=== PATIENT | male | born 1945 | race Caucasian/White ===

== ENCOUNTER 2019-01-03 05:52 | Emergency (ER) | payer OTHER ==
[~2019-01-03] VITALS: Ht 175.3 cm; Wt 114.8 kg
[~2019-01-03 05:52] MED LIST: ALLO100 PO; ASCO500; ASPI325; ATEN100 PO; ATEN50 PO; BECL25NI; CO Q-10 100 MG1 EACH PO; FLUNOI; FLUT110OIA INH; FURO20 PO; Flonase 0.05% N16 GM; GLUCHON; HYDACE5 PO; KETO10 PO; MECL12.5 PO; MECL25 PO; METF500 PO; Multiple Vitam1 EAC1 PO; NIAC500; OXYACE5T PO; PARO10 PO; PARO20; PRAV20 PO; PRED10 PO; PROM25 PO; PROM50S PR; RAPAFLO PO; RXHYDACE PO; RXPROM25S PR; TAMS.4ER PO; WARF5 PO
[2019-01-03] MEDS ORDERED: CYCL10 PO (09:03)
[2019-01-03] MEDS ORDERED: Norco 5-325 Ta1 EACH PO (09:03)
== END 2019-01-03 09:28 | disposition home or self-care (01) ==
LOC: ER 05:52
DX: M25.551 Pain in right hip (principal); Z88.5 Allergy status to narcotic agent; Z88.8 Allergy status to other drugs, medicaments and biological substances; Z79.899 Other long term (current) drug therapy; Z79.01 Long term (current) use of anticoagulants; Z79.84 Long term (current) use of oral hypoglycemic drugs; E11.9 Type 2 diabetes mellitus without complications; I10 Essential (primary) hypertension; F41.9 Anxiety disorder, unspecified; J45.909 Unspecified asthma, uncomplicated; I48.91 Unspecified atrial fibrillation
CPT/HCPCS: 36415; 72192; 73502; 96374; 96375; 99284-25; J2405; J3010

== ENCOUNTER 2019-02-13 23:50 | Inpatient (IN) | payer OTHER ==
[~2019-02-13] VITALS: Ht 175.3 cm; Wt 111.9 kg
[~2019-02-13 23:50] MED LIST changes: +CYCL10 PO; +Norco 5-325 Ta1 EACH PO
[2019-02-14 00:35] LABS: BASOPHILS ABSOLUTE AUTO 0.06 K/mm3 (0.00-0.23); BASOPHILS PERCENT AUTO 0 % (0-2); EOSINOPHILS ABSOLUTE AUTO 0.07 K/mm3 (0.00-0.68); EOSINOPHILS PERCENT AUTO 0 % (0-6); Hematocrit 47.1 % (37.0-53.0); Hemoglobin 15.7 g/dL (13.5-17.5); IMMATURE GRAN PERCENT AUTO 1 % (0-1); LYMPHOCYTES ABSOLUTE AUTO 1.23 K/mm3 (0.84-5.20); LYMPHOCYTES PERCENT AUTO 7 % (21-46); MONOCYTES ABSOLUTE AUTO 1.17 K/mm3 (0.16-1.47); MONOCYTES PERCENT AUTO 7 % (4-13); Mean Corpuscular HGB 32.4 pg (26.0-34.0); Mean Corpuscular HGB Conc 33.3 g/dL (31.5-36.5); Mean Corpuscular Volume 97 fL (80-100); Mean Platelet Volume 10.5 fL (9.1-12.4); NEUTROPHILS ABSOLUTE AUTO 14.35 K/mm3 (1.96-9.15); NEUTROPHILS PERCENT AUTO 85 % (41-73); Platelet Count 251 K/mm3 (150-400); RDW Coefficient Variation 13.9 % (11.7-14.2); Red Blood Cell Count 4.85 M/mm3 (4.30-5.90); White Blood Cell Count 16.98 K/mm3 (4.00-11.30)
[2019-02-14 00:59] LABS: Alanine Aminotransfer (ALT/SGP 18 U/L (12-78); Albumin, Blood 4.5 g/dL (3.4-5.0); Albumin/Globulin Ratio 1.3 (0.8-1.8); Alk Phos 93 U/L (50-136); Anion Gap 7 mmol/L (6-16); Aspartate Aminotrans (AST/SGOT 11 U/L (12-37); Bilirubin, Total 0.6 mg/dL (0.1-1.0); Blood Urea Nitrogen 23 mg/dL (8-24); CO2, Blood 20 mmol/L (21-32); Calcium, Blood 9.2 mg/dL (8.5-10.1); Chloride, Blood 113 mmol/L (98-108); Creatinine, Blood 0.85 mg/dL (0.60-1.20); Globulin, Blood 3.5 g/dL (2.2-4.0); Glomerular Filtration Rate >60 (60-); Glucose, Blood 253 mg/dL (70-99); Sodium, Blood 140 mmol/L (136-145); Troponin I <0.015 ng/mL (0.000-0.040)
[2019-02-14] MEDS ORDERED: ATOR10 PO (03:58)
[2019-02-14 04:40] LABS: International Normalized Ratio 2.12
--- NOTE | 2019-02-14 06:09 | NUR ---
PATIENT ARRIVED TO THE FLOOR AT 0515. HE TRANSFERRED SELF TO BED WITH SBA. ADMITTED FOR SMALL BOWEL OBSTRUCTION VS ILEUS. NGT PLACED IN ER HOOKED TO INTERMEDIENT SUCTION WITH 300CC OF YELLOW CLEAR TO BROWN FLUID WITH SOME SEDIMENT. DENIED ANY NAUSEA OR DISCOMFORT AT THIS TIME. ABDOMEN DISTENDED AND FIRM, NONTENDER, BOWEL TONES HYPOACTIVE. SECURED NGT TO NOSE WITH STAT TAPE, PINNED TO GOWN. TELEMETRY PLACED, SINUS TACHYCARDIA AT 114 PER LINEN GRADER. HISTORY OF AFIB NOTED, DENIED ANY CHEST PAIN OR SOB. ON 2 LITERS OF O2 DUE TO DROP IN SATS AFTER DILUADID WAS GIVEN. HAS HISTORY OF SLEEP APNEA. LUNG SOUNDS ARE CLEAR THROUGHOUT, SKIN PWD NO SKIN BREAKDOWN NOTED. IV FLUIDS INFUSING WIDE OPEN NS TO 20G LEFT HAND. NPO STATUS. SETTLED INTO ROOM, ADMISSION, HISTORY AND ASSESSMENT COMPLETED. CALL LIGHT AND INSTRUCTIONS GIVEN, VERBALIZED UNDERSTANDING. WILL CONTINUE TO MONITOR UNTIL DAY SHIFT ARRIVES.
--- NOTE | 2019-02-14 09:54 | NUR ---
PT NOT REQUIRING O2 DURING DAY. PT SATING AT 97 ON RA WHEN AWAKE. WILL CONTINUE TO MONITOR.
--- NOTE | 2019-02-14 09:57 | NUR ---
HR INCREASE TO 150S WITH EXERTION. PT HR INCREASED TO THE 150S PER MEGAN MAY. AT THIS TIME PT WAS WALKING TO BATHROOM. PT NOW BACK IN BED. HR RETURNED TO 107. WILL CONTINUE TO MONITOR.
--- NOTE | 2019-02-14 17:50 | NUR ---
Per admit trigger, I met with Mr. French and his . I offered information and education regarding ACP. Pt states "we have one at home." does not agree and took information. She asked good questions. Advised I would remain available to help complete forms. was asking pt questions from AD form as I left room. I will remain available.
--- NOTE | 2019-02-14 18:17 | NUR ---
SHIFT SUMMARY PT CONTINUES TO DENY PAIN. NG ON INTERMITTEN LOW SUCTION. 650 BROWN OUTPUT WITH PARTICLES DRAINED. NO BM THIS SHIFT. NO OTHER CHANGES IN ASSESSMENT AT THIS TIME. VSS. WILL CONTINUE TO MONITOR UNTIL TURNOVER IS COMPLETE.
--- NOTE | 2019-02-14 21:01 | NUR ---
DR SHI called about NPO status continued and IVF completed. Also thick blown NG secretions. BG was ordered Q 6 hours but sliding scale insulin ACHS. PT is NPO but requiring sling scale insulin. QID sliding scale times adjusted to Q [address] to decide if IV fluids will be continued. PT hyas only voided x 1 today per record and per PT report , no stools passing flatus. Await response.
--- NOTE | 2019-02-14 21:06 | NUR ---
RX IVF at 75 ml hour while NPO.
[2019-02-15 05:12] LABS: BASOPHILS ABSOLUTE AUTO 0.04 K/mm3 (0.00-0.23); BASOPHILS PERCENT AUTO 0 % (0-2); EOSINOPHILS PERCENT AUTO 2 % (0-6); Hematocrit 41.1 % (37.0-53.0); Hemoglobin 13.3 g/dL (13.5-17.5); IMMATURE GRAN ABSOLUTE AUTO 0.06 K/mm3 (0.00-0.10); IMMATURE GRAN PERCENT AUTO 1 % (0-1); LYMPHOCYTES ABSOLUTE AUTO 0.93 K/mm3 (0.84-5.20); LYMPHOCYTES PERCENT AUTO 8 % (21-46); MONOCYTES ABSOLUTE AUTO 0.94 K/mm3 (0.16-1.47); MONOCYTES PERCENT AUTO 8 % (4-13); Mean Corpuscular HGB 30.9 pg (26.0-34.0); Mean Corpuscular HGB Conc 32.4 g/dL (31.5-36.5); Mean Corpuscular Volume 96 fL (80-100); Mean Platelet Volume 10.3 fL (9.1-12.4); NEUTROPHILS ABSOLUTE AUTO 9.52 K/mm3 (1.96-9.15); NEUTROPHILS PERCENT AUTO 82 % (41-73); Platelet Count 183 K/mm3 (150-400); RDW Standard Deviation 49.1 fL (35.1-46.3); White Blood Cell Count 11.69 K/mm3 (4.00-11.30)
--- NOTE | 2019-02-15 05:46 | NUR ---
PT down to xray for KUB this AM and saline locked IV. No stools void x 2. Denies abd pain , has chronic knee pain. Irrigated NG to keep patent with total 140 ml water 440 brown output claimed. On tele monitor, pulse greater than 100 had lopressor 5 mg with helpful effect. few ice chips sips h2o taken
[2019-02-15 05:53] LABS: Alanine Aminotransfer (ALT/SGP 10 U/L (12-78); Albumin, Blood 3.3 g/dL (3.4-5.0); Albumin/Globulin Ratio 1.1 (0.8-1.8); Alk Phos 74 U/L (50-136); Anion Gap 7 mmol/L (6-16); Aspartate Aminotrans (AST/SGOT 4 U/L (12-37); Blood Urea Nitrogen 10 mg/dL (8-24); Bun/Creatinine Ratio 14.3 (12.0-20.0); CO2, Blood 24 mmol/L (21-32); Calcium, Blood 7.7 mg/dL (8.5-10.1); Chloride, Blood 111 mmol/L (98-108); Globulin, Blood 2.9 g/dL (2.2-4.0); Glomerular Filtration Rate >60 (60-); Glucose, Blood 152 mg/dL (70-99); Potassium, Blood 3.7 mmol/L (3.5-5.5); Sodium, Blood 142 mmol/L (136-145); Total Protein, Blood 6.2 g/dL (6.4-8.2)
--- NOTE | 2019-02-15 15:57 | NUR ---
SUMMARY PT IS A/O X4, PLEASANT AFFECT. HE IS IND, GAIT STEADY HOWEVER REQUIRES ASSIST WITH LINES. STATE NO NAUSEA, NO ABD PAIN SO FAR TODAY. STATE PASSING GAS INTERMITTANTLY. DR ISRAEL SEE HIM THIS AFTERNOON, PLACE ORDER TO CLAMP NG TUBE & CHECK RESIDUAL IN 3HRS. PT CONTINUES NPO X ICE CHIPS/SIPS WATER. HE HAS BEEN UP IN CHAIR MOST OF DAY. VSS, BIOX 97% RA
--- NOTE | 2019-02-15 18:16 | NUR ---
NG CLAMPED APPROX 3HRS/ORDER, RESIDUAL 75 ML KAREN WATERY FLUID w FLECKS GREEN/BROWN. NG TUBE REMOVED & CL ADA DIET PROVIDED/DR ISRAEL ORDER. BT+, PT STATE PASSING GAS INTERMITTANTLY, STATE NO NAUSEA. ENCOURAGED PO INTAKE CAUTIOUSLY.
[2019-02-16 04:51] LABS: BASOPHILS ABSOLUTE AUTO 0.03 K/mm3 (0.00-0.23); BASOPHILS PERCENT AUTO 0 % (0-2); EOSINOPHILS ABSOLUTE AUTO 0.12 K/mm3 (0.00-0.68); EOSINOPHILS PERCENT AUTO 1 % (0-6); Hematocrit 39.1 % (37.0-53.0); Hemoglobin 13.1 g/dL (13.5-17.5); IMMATURE GRAN ABSOLUTE AUTO 0.04 K/mm3 (0.00-0.10); IMMATURE GRAN PERCENT AUTO 0 % (0-1); LYMPHOCYTES ABSOLUTE AUTO 0.98 K/mm3 (0.84-5.20); LYMPHOCYTES PERCENT AUTO 10 % (21-46); MONOCYTES ABSOLUTE AUTO 0.83 K/mm3 (0.16-1.47); MONOCYTES PERCENT AUTO 9 % (4-13); Mean Corpuscular HGB 31.4 pg (26.0-34.0); Mean Corpuscular HGB Conc 33.5 g/dL (31.5-36.5); Mean Corpuscular Volume 94 fL (80-100); Mean Platelet Volume 10.1 fL (9.1-12.4); NEUTROPHILS ABSOLUTE AUTO 7.59 K/mm3 (1.96-9.15); NEUTROPHILS PERCENT AUTO 79 % (41-73); Platelet Count 164 K/mm3 (150-400); RDW Coefficient Variation 13.7 % (11.7-14.2); RDW Standard Deviation 46.6 fL (35.1-46.3); Red Blood Cell Count 4.17 M/mm3 (4.30-5.90); White Blood Cell Count 9.59 K/mm3 (4.00-11.30)
[2019-02-16 05:06] LABS: International Normalized Ratio 1.93; Prothrombin Time Results 19.3 Sec (9.7-11.5)
[2019-02-16 05:12] LABS: Anion Gap 8 mmol/L (6-16); Blood Urea Nitrogen 8 mg/dL (8-24); Bun/Creatinine Ratio 11.4 (12.0-20.0); CO2, Blood 25 mmol/L (21-32); Calcium, Blood 8.2 mg/dL (8.5-10.1); Chloride, Blood 108 mmol/L (98-108); Glomerular Filtration Rate >60 (60-); Glucose, Blood 150 mg/dL (70-99); Potassium, Blood 3.5 mmol/L (3.5-5.5); Sodium, Blood 141 mmol/L (136-145)
--- NOTE | 2019-02-16 06:49 | NUR ---
SHIFT SUMMARY PT IS A 73 Y/O MALE, ADMITTED FOR AN ILEUS VS SBO. HIS NG TUBE WAS REMOVED DURING DAY SHIFT YESTERDAY, AND HE HAS BEEN ON A CLEAR LIQUID DIET SINCE, WHICH HE HAS TOLERATED WELL WITH NO REPORTED NAUSEA OR ABD PAIN. PER TELE, PT REMAINS IN AFIB, IN THE 90S, BUT WILL SPIKE UP TO THE 110S TO 120S WITH ANY EXERTION. ALL OTHER VITALS STABLE. NO OTHER ACUTE CHANGES IN PT CONDITION NOTED. WILL CONTINUE TO MONITOR AND TREAT PER EMAR UNTIL HAND OFF TO DAY SHIFT RN.
--- NOTE | 2019-02-16 19:42 | NUR ---
SUMMARY PT STATE NO ABD PAIN, NO NAUSEA. STATES PASSING GAS INTERMITTANTLY HOWEVER NO BM TODAY. BT+ HOWEVER HYPO. DR ISRAEL STATE TO CONTINUE CL DIET FOR NOW. PT HAS BEEN TOLERATING CAUTIOUSLY. HE HAS BEEN UP IN CHAIR FOR BRIEF PERIODS TODAY, STATE WEAKNESS, HAS AMBULATED W FWW IN ROOM HOWEVER ONLY SHORT DISTANCE, R/T R HIP, R KNEE PAIN. HAVE GIVEN IV DILAUDID & NORCO TODAY FOR RELIEF/CONTROL. HR AFIB T/O DAY, TELE MX REPORT AVERAGE APPROX 100 BPM, DR YOLI JARQUIN TODAY. AMBULATION ENCOURAGED.
[2019-02-17 04:57] LABS: BASOPHILS ABSOLUTE AUTO 0.02 K/mm3 (0.00-0.23); BASOPHILS PERCENT AUTO 0 % (0-2); EOSINOPHILS ABSOLUTE AUTO 0.03 K/mm3 (0.00-0.68); EOSINOPHILS PERCENT AUTO 0 % (0-6); Hematocrit 38.1 % (37.0-53.0); Hemoglobin 13.2 g/dL (13.5-17.5); IMMATURE GRAN ABSOLUTE AUTO 0.04 K/mm3 (0.00-0.10); IMMATURE GRAN PERCENT AUTO 1 % (0-1); LYMPHOCYTES ABSOLUTE AUTO 0.73 K/mm3 (0.84-5.20); LYMPHOCYTES PERCENT AUTO 9 % (21-46); MONOCYTES PERCENT AUTO 13 % (4-13); Mean Corpuscular HGB 31.9 pg (26.0-34.0); Mean Corpuscular HGB Conc 34.6 g/dL (31.5-36.5); Mean Corpuscular Volume 92 fL (80-100); Mean Platelet Volume 10.2 fL (9.1-12.4); NEUTROPHILS ABSOLUTE AUTO 5.93 K/mm3 (1.96-9.15); NEUTROPHILS PERCENT AUTO 77 % (41-73); Platelet Count 162 K/mm3 (150-400); RDW Coefficient Variation 13.6 % (11.7-14.2); RDW Standard Deviation 46.2 fL (35.1-46.3); Red Blood Cell Count 4.14 M/mm3 (4.30-5.90); White Blood Cell Count 7.75 K/mm3 (4.00-11.30)
[2019-02-17 05:11] LABS: International Normalized Ratio 1.65; Prothrombin Time Results 16.7 Sec (9.7-11.5)
[2019-02-17 05:15] LABS: Alanine Aminotransfer (ALT/SGP 104 U/L (12-78); Albumin, Blood 3.3 g/dL (3.4-5.0); Albumin/Globulin Ratio 1.1 (0.8-1.8); Alk Phos 159 U/L (50-136); Anion Gap 8 mmol/L (6-16); Aspartate Aminotrans (AST/SGOT 62 U/L (12-37); Blood Urea Nitrogen 7 mg/dL (8-24); Bun/Creatinine Ratio 10.7 (12.0-20.0); CO2, Blood 25 mmol/L (21-32); Chloride, Blood 105 mmol/L (98-108); Creatinine, Blood 0.65 mg/dL (0.60-1.20); Glomerular Filtration Rate >60 (60-); Glucose, Blood 176 mg/dL (70-99); Potassium, Blood 3.2 mmol/L (3.5-5.5); Sodium, Blood 138 mmol/L (136-145); Total Protein, Blood 6.3 g/dL (6.4-8.2)
--- NOTE | 2019-02-17 06:46 | NUR ---
SHIFT SUMMARY PT IS A 73 Y/O MALE, ADMITTED FOR AN ILEUS VS SBO. HE IS A&O X 4, AND A SBA/INDEPENDENT IN THE ROOM. PT DENIED ANY ABD PAIN OR NAUSEA, AND HAS TOLERATED HIS CLEAR LIQUID DIET WELL. HE WAS MEDICATED ONCE WITH PRN HYDROCODONE FOR CHRONIC HIP PAIN. VITALS WERE STABLE. PT SLEPT OFF AND ON THROUGH THE NIGHT. NO OTHER ACUTE CHANGES IN PT CONDITION NOTED. WILL CONTINUE TO MONITOR AND TREAT PER EMAR UNTIL HAND OFF TO DAY SHIFT.
[2019-02-17 15:35] LABS: Adenovirus F 40/41 Not Detected (NOT DETECT); Astrovirus Not Detected (NOT DETECT); Campylobacter Sp Not Detected (NOT DETECT); Cryptosporidium Not Detected (NOT DETECT); Cyclospora Cayetanensis Not Detected (NOT DETECT); E. Coli O157 Not Detected (NOT DETECT); Entamoeba Histolytica Not Detected (NOT DETECT); Enteroaggregative E. coli-EAEC Not Detected (NOT DETECT); Enteropathogenic E. coli-EPEC Not Detected (NOT DETECT); Enterotoxigenic E. coli-ETEC Not Detected (NOT DETECT); Giardia Lamblia Not Detected (NOT DETECT); Norovirus GI/GII Not Detected (NOT DETECT); Plesiomonas Shigelloides Not Detected (NOT DETECT); Rotavirus A Not Detected (NOT DETECT); Salmonella Sp Not Detected (NOT DETECT); Sapovirus Not Detected (NOT DETECT); Shiga Toxin-prod E. coli-STEC Not Detected (NOT DETECT); Shigella/Enteroin E. coli-EIEC Not Detected (NOT DETECT); Vibrio Cholerae Not Detected (NOT DETECT); Vibrio Sp Not Detected (NOT DETECT); Yersinia Enterocolitica Not Detected (NOT DETECT)
--- NOTE | 2019-02-17 18:24 | NUR ---
SHIFT SUMMARY PT AXO, PLEASANT AND COOPERATIVE WITH CARE. TELE DC'D THIS SHIFT. IV PATENT AND SALINE LOCKED. PT SBA TO BATHROOM, RT R. HIP PAIN AND LINES AND CORDS. PT HAD BM X3 THIS SHIFT, LIQUID WITH CHUNKS. SAMPLE SENT TO LAB, SEE LABS. PT TOLERATING FULL LIQUID DIET. PT MEDICATED FOR PAIN PER EMAR, STATES THAT HIS HIP PAIN IS A 10/10 WITH MOVEMENT BUT PAIN IS TOLERABLE AT REST. BED IN LOW POSITION, CALL LIGHT WITHIN REACH. CONT PULSE OX ON 93% THROUGHOUT THE DAY. PT DENIES SOB AND NV
[2019-02-18 04:53] LABS: International Normalized Ratio 1.34; Prothrombin Time Results 13.8 Sec (9.7-11.5)
[2019-02-18 04:56] LABS: Anion Gap 7 mmol/L (6-16); Blood Urea Nitrogen 5 mg/dL (8-24); Bun/Creatinine Ratio 7.1 (12.0-20.0); CO2, Blood 26 mmol/L (21-32); Calcium, Blood 8.3 mg/dL (8.5-10.1); Chloride, Blood 103 mmol/L (98-108); Glomerular Filtration Rate >60 (60-); Glucose, Blood 163 mg/dL (70-99); Potassium, Blood 3.2 mmol/L (3.5-5.5); Sodium, Blood 136 mmol/L (136-145)
[2019-02-18] MEDS ORDERED: WARF7.5 PO (10:54)
[2019-02-18] MEDS ORDERED: ACET500 PO (10:54)
[2019-02-18] MEDS ORDERED: HYDR1TAB94 PO (10:55)
[2019-02-18] MEDS ORDERED: POTCHL20ER PO (10:55)
[2019-02-18] MEDS ORDERED: SENN187 PO (10:56)
--- NOTE | 2019-02-18 12:44 | NUR ---
DISCHARGE DISCHARGE INSTRUCTIONS, MEDICATION LIST AND FOLLOW UP APPOINTMENTS REVIEWED WITH PT AND HIS SPOUSE. QUESTIONS/CONCERNS ANSWERED. PT AND SPOUSE VERBALLY INDICATED UNDERSTANDING OF ALL INSTRUCTIONS RECEIVED. ESCORTED OUT VIA W/C BY MOLLY
== END 2019-02-18 12:14 | disposition home or self-care (01) | DRG 390 ==
LOC: ER 23:50 → MEDS 02-14 04:53 → ENPENDDIS 02-18 10:09 → MEDS 02-18 12:14
PROVIDERS: Family Medicine; Internal Medicine; Physician Assistant; ADMIT Internal Medicine
DX: K56.7 Ileus, unspecified (principal); M16.11 Unilateral primary osteoarthritis, right hip; G89.4 Chronic pain syndrome; E11.9 Type 2 diabetes mellitus without complications; Z79.4 Long term (current) use of insulin; I10 Essential (primary) hypertension; I48.2 Chronic atrial fibrillation; K21.9 Gastro-esophageal reflux disease without esophagitis; E87.6 Hypokalemia; M10.9 Gout, unspecified; Z85.841 Personal history of malignant neoplasm of brain; G47.30 Sleep apnea, unspecified
CPT/HCPCS: 0097U; 36415; 71045; 74018; 74176; 80048; 80053; 82947; 83690; 84484; 85025; 85610; 93005; 93010; 94762; 96361; 96374; 96375; 96376; 99285-25; A9270-GY; J1170; J1650; J1815; J2405; J3480; J7030

== ENCOUNTER → 2019-09-06 | Outpatient (CLI) | payer OTHER ==
[~2019-09-06] MED LIST changes: +ACET500 PO; +ATOR10 PO; +HYDR1TAB94 PO; +POTCHL20ER PO; +SENN187 PO; +WARF7.5 PO
[2019-09-06 11:49] LABS: Source, Urine Clean Catch
[2019-09-06 12:09] LABS: Amorphous Light (0-Heavy); Bacteria Rare /hpf; Mucus Heavy (0-Heavy); Red Blood Cells, Urine 0-2 /hpf (0-2); Squamous Epithelial Cells Rare /hpf (Few)
== END | disposition home or self-care (01) ==
LOC: LAB EV 11:47 → LAB SHORT 11:47
PROVIDERS: Physician Assistant
DX: R35.0 Frequency of micturition (principal)
CPT/HCPCS: 81015; 87086

== ENCOUNTER 2020-04-24 11:37 | Day surgery (SDC) | payer OTHER ==
[~2020-04-24] VITALS: Ht 175.3 cm; Wt 108.3 kg
[~2020-04-24 11:37] MED LIST changes: +COLE625 PO; +FLOVENT HFA12 GM INH; +FLUT.05NI; +MULTIVITAMINS1 EAC3; +PARO20 PO; +SITA25T2 PO
--- NOTE | 2020-04-24 13:22 | NUR ---
04/24/20 1322 Carisa Lee DELAYED ENTRY 1ST IV ATTEMPT BY HS IN RIGHT HAND UNSUCCESSFUL 2ND IV ATTEMPT BY NSC IN RIGHT FOREARM NO FLASHBACK 3RD IV ATTEMPT BY RXS IN LEFT WRIST NO FLASHBACK 4TH ATTEMPT BY DR FOSTER IN RIGHT WRIST SUCCESSFUL
== END 2020-04-24 13:52 | disposition home or self-care (01) ==
LOC: ORSCSDS 11:37
PROVIDERS: Internal Medicine Gastroenterology
PROC: 0DBE8ZX Excision of Large Intestine, Via Natural or Artificial Opening Endoscopic, Diagnostic (ICD-10-PCS; principal; 2020-04-24 13:00)
DX: R19.7 Diarrhea, unspecified (principal); Z86.010 Personal history of colon polyps; K57.30 Diverticulosis of large intestine without perforation or abscess without bleeding; K64.8 Other hemorrhoids; G47.33 Obstructive sleep apnea (adult) (pediatric); E11.9 Type 2 diabetes mellitus without complications; G47.30 Sleep apnea, unspecified; I48.91 Unspecified atrial fibrillation; E66.9 Obesity, unspecified; Z68.36 Body mass index [BMI] 36.0-36.9, adult; Z79.82 Long term (current) use of aspirin; Z79.84 Long term (current) use of oral hypoglycemic drugs; Z79.01 Long term (current) use of anticoagulants; Z79.899 Other long term (current) drug therapy
CPT/HCPCS: 88305; J2704; J7120

== ENCOUNTER 2020-12-09 21:14 | Emergency (ER) | payer OTHER ==
[~2020-12-09] VITALS: Ht 177.8 cm; Wt 108.9 kg
[2020-12-09] MEDS ORDERED: Voltaren100 GM TOP (23:40)
== END 2020-12-10 00:09 | disposition home or self-care (01) ==
LOC: ER 21:14
DX: M25.521 Pain in right elbow (principal); E11.9 Type 2 diabetes mellitus without complications; I10 Essential (primary) hypertension; K21.9 Gastro-esophageal reflux disease without esophagitis; J45.909 Unspecified asthma, uncomplicated; Z88.5 Allergy status to narcotic agent; Z88.8 Allergy status to other drugs, medicaments and biological substances; Z79.01 Long term (current) use of anticoagulants; Z79.899 Other long term (current) drug therapy; Z79.84 Long term (current) use of oral hypoglycemic drugs
CPT/HCPCS: 73080; 99283-25; A9270

== ENCOUNTER → 2021-06-30 | Outpatient (CLI) | payer OTHER ==
[~2021-06-30] MED LIST changes: +Voltaren100 GM TOP
[2021-07-01 09:57] LABS: Stool Occult Bld Immuno 1 Negative (NEGATIVE)
== END | disposition home or self-care (01) ==
LOC: LAB SHORT 14:50 → LAB 14:50
PROVIDERS: Family Medicine
DX: Z12.11 Encounter for screening for malignant neoplasm of colon (principal)
CPT/HCPCS: G0328

== ENCOUNTER → 2021-10-09 | Outpatient (CLI) | payer OTHER ==
[2021-10-11 09:16] LABS: Stool Occult Bld Immuno 1 Negative (NEGATIVE)
== END | disposition home or self-care (01) ==
LOC: LAB 13:45 → LAB SHORT 13:45
PROVIDERS: Internal Medicine
DX: D53.9 Nutritional anemia, unspecified (principal)
CPT/HCPCS: 82274

== ENCOUNTER → 2022-12-23 | Outpatient (CLI) | payer OTHER ==
[2022-12-23 16:21] LABS: Microalb/Creat Ratio UR, Rand 12.52 mg/g (0.000-30.000); Microalbumin, Random Urine 15.9 mg/L (0.000-20.000)
== END | disposition home or self-care (01) ==
LOC: LAB SHORT 14:10 → LAB 14:10
PROVIDERS: Internal Medicine Endocrinology, Diabetes & Metabolism
DX: E11.65 Type 2 diabetes mellitus with hyperglycemia (principal)
CPT/HCPCS: 82043; 82570

== ENCOUNTER 2023-06-04 19:09 | Inpatient (IN) | payer OTHER ==
[~2023-06-04] VITALS: Ht 172.7 cm; Wt 111.5 kg
[2023-06-05 02:51] LABS: BASOPHILS ABSOLUTE AUTO 0.03 K/mm3 (0.00-0.23); BASOPHILS PERCENT AUTO 0 % (0-2); EOSINOPHILS ABSOLUTE AUTO 0.01 K/mm3 (0.00-0.68); EOSINOPHILS PERCENT AUTO 0 % (0-6); Hematocrit 40.9 % (37.0-53.0); IMMATURE GRAN ABSOLUTE AUTO 0.06 K/mm3 (0.00-0.10); IMMATURE GRAN PERCENT AUTO 0 % (0-1); LYMPHOCYTES ABSOLUTE AUTO 1.04 K/mm3 (0.84-5.20); LYMPHOCYTES PERCENT AUTO 8 % (21-46); MONOCYTES ABSOLUTE AUTO 1.14 K/mm3 (0.16-1.47); MONOCYTES PERCENT AUTO 9 % (4-13); Mean Corpuscular HGB 32.8 pg (26.0-34.0); Mean Corpuscular HGB Conc 34.2 g/dL (31.5-36.5); Mean Corpuscular Volume 96 fL (80-100); Mean Platelet Volume 9.7 fL (9.1-12.4); NEUTROPHILS ABSOLUTE AUTO 11.16 K/mm3 (1.96-9.15); NEUTROPHILS PERCENT AUTO 83 % (41-73); Platelet Count 257 K/mm3 (150-400); RDW Coefficient Variation 14.6 % (11.7-14.2); RDW Standard Deviation 51.4 fL (35.1-46.3); Red Blood Cell Count 4.27 M/mm3 (4.30-5.90); White Blood Cell Count 13.44 K/mm3 (4.00-11.30)
[2023-06-05 03:25] LABS: International Normalized Ratio 2.89; Prothrombin Time Results 28.6 Sec (9.7-11.5)
[2023-06-05 03:38] LABS: Albumin, Blood 3.4 g/dL (3.4-5.0); Bilirubin, Total 0.9 mg/dL (0.1-1.0); Bun/Creatinine Ratio 18.4 (12.0-20.0); Calcium, Blood 8.3 mg/dL (8.5-10.1); Creatinine, Blood 0.71 mg/dL (0.60-1.20); Globulin, Blood 3.3 g/dL (2.2-4.0); Potassium, Blood 3.8 mmol/L (3.5-5.5); Total Protein, Blood 6.7 g/dL (6.4-8.2)
--- NOTE | 2023-06-05 03:40 | NUR ---
ADMIT NOTE; PT ARRIVES FROM ED VIA ED GURNEY. THE PT IS AXO X4 AND ABLE TO SELF TRANSFER FROM THE ED GURNEY TO THE HOSPITAL BED. THE PT HAS A NG TUBE IN PLACE, IT IS PATENT. WELL THE PT HAS LR RUNNING AT 75MLS/HR. THE PT DENIES ANY SOB, CHEST PAIN/PRESSURE N/V OR ABDOMINAL DISCOMFORT PRESENTLY. NG TUBE ATTACHED TO SUCTION RUNNING AT 30-40 INTERMITTENLY. GREEN BILE LIKE SUBSTANCE DRAINING. THE PT DENIES HAVING ANY OTHER PAIN, CHEST PAIN/PRESSURE OR N/V. CURRENTLY THE PT IS RESTING IN BED WITH THE BED IN THE LOWEST POSITION AND THE CALL LIGHT AT BEDSIDE. FIRE EDUCATION PROVIDED, THE PT DENIES HAVING ANY POSSIBLE IGNITION SOURCES IN POSSESSION AT THIS TIME.
[2023-06-05 03:44] VITALS: BP 125/91
--- NOTE | 2023-06-05 05:15 | NUR ---
SHIFT SUMMARY; NO ACUTE CHANGES SINCE ADMIT. THE PT IS AXO X4 AND INDEPENDENT AT BASELINE. 1 ASSIST R/T HAVING A NG TUBE. THE PT HAS BEEN SLEEPING IN BED SINCE ADMIT. THE PTS NG TUBE REMAINS PATENT DRAINING GREEN BILE LIKE SUBSTANCE. THE PT DENIES ANY SOB, CHEST PAIN/PRESSURE, PAIN OR N/V. CURRENTLY THE PT IS SLEEPING IN BED WITH THE BED IN THE LOWEST POSITION AND THE CALL LIGHT AT BEDSIDE. FIRE SAFETY MAINTAINED SINCE ADMIT.
[2023-06-05 07:34] VITALS: BP 130/77
--- NOTE | 2023-06-05 16:04 | NUR ---
SHIFT SUMMARY PT AWAKE DURING SHIFT REPORT. PLEASANT AND CO-OP. ADMITTED FOR SBO; NGT TO LIS WITH DECREASED OUTPUT FROM PLACEMENT IN ER. DR HAWKINS IN TO SEE PT EARLY AND DISCUSSED PLAN OF CARE WELL WAITING FOR INPUT FROM SURGEON. DR REAGAN LATER IN TO SEE PT, IRRIGATING NGT. PT REPORTING FEELING BETTER AFTER NGT PLACED IN ER, REMOVING PRESSURE IN ABD. NO C/O PAIN OR NAUSEA. USING URINAL AT BS NEEDED. IN TO VISIT EARLY AND RETURNING AGAIN LATER THIS AFTERNOON. PT RESTING QUIETLY WATCHING TV AND NAPPING OFF AND ON. DENIED FURTHER NEEDS. CALL LT IN REACH.
[2023-06-05 16:11] VITALS: BP 110/97
[2023-06-05 20:15] VITALS: BP 133/94
[2023-06-06 05:05] VITALS: BP 131/86
[2023-06-06 05:06] LABS: International Normalized Ratio 2.84; Prothrombin Time Results 28.1 Sec (9.7-11.5)
--- NOTE | 2023-06-06 05:47 | NUR ---
SHIFT SUMMARY PT IS A&OX4, PLEASANT AND COOPERATIVE WITH ALL CARES. NORMOTENSIVE, HR 70-80'S, AFEBRILE, 02 SATS >90% ON RA. DENIES PAIN. BG WNL. NGT TO LIS, SMALL AMOUNTS OF GREENISH/BROWN OUTPUT. VOIDING INDEPENDENTLY IN URINAL AT BEDSIDE. ADEQUATE AMOUNTS OF DARK YELLOW URINE, NO BM THIS SHIFT BUT STATES HE IS PASSING FLATUS. ABIGAIL REMAINS NPO, SIPS WITH MEDICATIONS. DENIES ANY N/V. BED IN LOWEST POSITION, CALL LIGHT WITHIN REACH. FIRE SAFETY CHECKS COMPLETED
[2023-06-06 07:14] VITALS: BP 135/82
[2023-06-06 09:57] LABS: BASOPHILS ABSOLUTE AUTO 0.04 K/mm3 (0.00-0.23); BASOPHILS PERCENT AUTO 0 % (0-2); EOSINOPHILS ABSOLUTE AUTO 0.09 K/mm3 (0.00-0.68); EOSINOPHILS PERCENT AUTO 1 % (0-6); Hematocrit 38.8 % (37.0-53.0); Hemoglobin 12.8 g/dL (13.5-17.5); IMMATURE GRAN ABSOLUTE AUTO 0.04 K/mm3 (0.00-0.10); IMMATURE GRAN PERCENT AUTO 0 % (0-1); LYMPHOCYTES ABSOLUTE AUTO 1.22 K/mm3 (0.84-5.20); LYMPHOCYTES PERCENT AUTO 13 % (21-46); MONOCYTES ABSOLUTE AUTO 0.76 K/mm3 (0.16-1.47); MONOCYTES PERCENT AUTO 8 % (4-13); Mean Corpuscular HGB 31.9 pg (26.0-34.0); Mean Corpuscular Volume 97 fL (80-100); Mean Platelet Volume 10.1 fL (9.1-12.4); NEUTROPHILS ABSOLUTE AUTO 7.45 K/mm3 (1.96-9.15); NEUTROPHILS PERCENT AUTO 78 % (41-73); Platelet Count 219 K/mm3 (150-400); RDW Coefficient Variation 14.5 % (11.7-14.2); RDW Standard Deviation 51.9 fL (35.1-46.3); Red Blood Cell Count 4.01 M/mm3 (4.30-5.90)
[2023-06-06 10:06] LABS: Bun/Creatinine Ratio 17.2 (12.0-20.0); Calcium, Blood 7.9 mg/dL (8.5-10.1); Creatinine, Blood 0.7 mg/dL (0.60-1.20); Potassium, Blood 3.7 mmol/L (3.5-5.5)
--- NOTE | 2023-06-06 14:33 | NUR ---
SHIFT SUMMARY PT RESTING QUIETLY AT START OF SHIFT, NGT TO LIS; BROWN FLUID WITH PARTICLES IN TUBING. STILL NO BM. NO C/O NAUSEA OR PAIN. DR HAWKINS IN TO SEE PT AND DISCUSS PLAN OF CARE. PT TO HAVE SBFT STARTING THIS AM. IMAGING NOW COMPLETE. DR REAGAN PLACED ORDERS TO D/C NGT; DONE PER ORDERS. PT OK TO ADVANCE DIET TO CL AND FURTHER PER ORDERS TOLERATED. PT WANTING TO START WITH PLAIN WATER AND GOING SLOW. PT UP TO BTHRM A COUPLE OF TIMES THIS SHIFT; NO BM YET, JUST PASSING FLATUS. PT NOW SITTING IN CHAIR AT BS. PT ABLE TO AMBULATE USING FWW AND SBA. PT IS STILL A LITTLE WEAK, BUT DOING BETTER THE MORE HE IS UP AND MOVING. DENIES FURTHER NEEDS AT THIS TIME. CALL LT IN REACH.
--- NOTE | 2023-06-06 15:52 | NUR ---
PT UP TO BTHRM, REPORTING THAT HE JUST HAD A BM; MOSTLY LIQUID. GREEN/BROWN IN COLOR, PER PT.
[2023-06-06 19:47] VITALS: BP 141/84
[2023-06-07 03:10] VITALS: BP 153/81
--- NOTE | 2023-06-07 04:38 | NUR ---
SHIFT SUMMARY PT A&OX4, VSS, NO NEW ACUTE CHANGES OVER NOC. DENIES PAIN. TOLERATING A CLEAR LIQUID DIET, NO N/V. INDEPENDENT TO BR, VOIDING ADEQUATE AMOUNTS. X2 LOOSE BM THIS SHIFT. BG WNL, CONTINUE TO MONITOR. BED IN LOWEST POSITION, CALL LIGHT WITHIN REACH. FIRE SAFETY CHECKS COMPLETED
[2023-06-07 05:02] LABS: BASOPHILS ABSOLUTE AUTO 0.04 K/mm3 (0.00-0.23); BASOPHILS PERCENT AUTO 1 % (0-2); EOSINOPHILS PERCENT AUTO 1 % (0-6); Hematocrit 38.8 % (37.0-53.0); Hemoglobin 13.2 g/dL (13.5-17.5); IMMATURE GRAN ABSOLUTE AUTO 0.04 K/mm3 (0.00-0.10); IMMATURE GRAN PERCENT AUTO 1 % (0-1); LYMPHOCYTES ABSOLUTE AUTO 1.03 K/mm3 (0.84-5.20); LYMPHOCYTES PERCENT AUTO 12 % (21-46); MONOCYTES ABSOLUTE AUTO 0.91 K/mm3 (0.16-1.47); MONOCYTES PERCENT AUTO 11 % (4-13); Mean Corpuscular HGB 32.3 pg (26.0-34.0); Mean Corpuscular Volume 95 fL (80-100); Mean Platelet Volume 9.8 fL (9.1-12.4); NEUTROPHILS ABSOLUTE AUTO 6.16 K/mm3 (1.96-9.15); NEUTROPHILS PERCENT AUTO 74 % (41-73); Platelet Count 207 K/mm3 (150-400); RDW Coefficient Variation 14.4 % (11.7-14.2); RDW Standard Deviation 49.4 fL (35.1-46.3); Red Blood Cell Count 4.09 M/mm3 (4.30-5.90); White Blood Cell Count 8.28 K/mm3 (4.00-11.30)
[2023-06-07 05:20] LABS: International Normalized Ratio 3.27; Prothrombin Time Results 32.1 Sec (9.7-11.5)
[2023-06-07 05:32] LABS: Bun/Creatinine Ratio 13.3 (12.0-20.0); Calcium, Blood 8.3 mg/dL (8.5-10.1); Creatinine, Blood 0.75 mg/dL (0.60-1.20); Potassium, Blood 3.6 mmol/L (3.5-5.5)
[2023-06-07 07:45] VITALS: BP 136/87
[2023-06-07 15:13] VITALS: BP 129/70
--- NOTE | 2023-06-07 18:25 | NUR ---
SHIFT SUMMARY: NO ACUTE EVENTS. CLEAR LIQ DIET WELL TOLERATED, SO DIET ADVANCED TO LOW FIBER/ADA AND HE HAS TOLERATED IT WELL SO FAR. TREMORS NOTED IN BILATERAL HANDS. AMBULATING IN HALLWAY WITH FWW, GAIT STEADY. GETTING UP TO BR. WAS UP IN CHAIR ALMOST ENTIRE SHIFT. DENIED PAIN. GAVE PRINTED EDUCATION ABOUT LOW FIBER DIET. IS HOPING TO D/C HOME TOMORROW.
[2023-06-07 19:26] VITALS: BP 137/74
[2023-06-08 03:03] VITALS: BP 136/87
[2023-06-08 05:35] LABS: International Normalized Ratio 3.4; Prothrombin Time Results 33.3 Sec (9.7-11.5)
--- NOTE | 2023-06-08 06:43 | NUR ---
SHIFT SUMMARY BEDSIDE REPORT FROM ELLIS WATTS RN- PT LAYING IN DURING REPORT-PT REPORTED WEARING A BIPAP AT HOME- NOTIFIED PT THAT IT COULD BE ORDERED- PT REFUSED, HE STATED, "DENNIS BEEN HERE FOR 2 NIGHTS WITHOUT IT, I DON'T NEED IT FOR MY LAST NIGHT" INFORMED PT TO LET THIS RN KNOW IF HE CHANGES HIS MIND-PT DENIES PAIN IN ABDOMEN- PT AMBULATED IN HALLWAY TWICE IN THE SHIFT- PT REPORTED FREQUENT URINATION T/O NIGHT, PT REPORTS HE HAS AN APPT WITH UROLOGY DEC. 6-PT INDEPENDENT IN ROOM, CALL APPROPRIATE, CALL LIGHT WITHIN REACH
[2023-06-08 07:25] VITALS: BP 118/63
--- NOTE | 2023-06-08 16:00 | NUR ---
PATIENT DISCHARGED TO HOME ACCOMPANIED BY HIS . IV SALINE LOCK REMOVED WITHOUT INCIDENT. VERBALIZED UNDERSTANDING OF D/C INSTRUCTIONS. SUPERMARKET MANAGER PROVIDED EDUCATION ON LOW FIBER DIET AND PT'S HAD HER QUESTIONS ANSWERED, AND THEY WERE GRATEFUL FOR THE INFORMATION. AMBULATED OFF UNIT AT 1600. NO PERSONAL BELONGINGS LEFT BEHIND IN ROOM.
== END 2023-06-08 16:00 | disposition home or self-care (01) | DRG 389 ==
LOC: ER 19:09 → MEDS 06-05 01:50
PROVIDERS: Internal Medicine; ADMIT Student in an Organized Health Care Education/Training Program
PROC: 0D9670Z Drainage of Stomach with Drainage Device, Via Natural or Artificial Opening (ICD-10-PCS; principal; 2023-06-05)
DX: K56.609 Unspecified intestinal obstruction, unspecified as to partial versus complete obstruction (principal); I48.20 Chronic atrial fibrillation, unspecified; E11.9 Type 2 diabetes mellitus without complications; E78.5 Hyperlipidemia, unspecified; R93.2 Abnormal findings on diagnostic imaging of liver and biliary tract; M10.9 Gout, unspecified; F41.9 Anxiety disorder, unspecified; E66.9 Obesity, unspecified; G20.C Parkinsonism, unspecified; G47.33 Obstructive sleep apnea (adult) (pediatric); Z79.01 Long term (current) use of anticoagulants; Z88.8 Allergy status to other drugs, medicaments and biological substances; Z88.5 Allergy status to narcotic agent; Z79.84 Long term (current) use of oral hypoglycemic drugs; Z79.51 Long term (current) use of inhaled steroids; Z79.899 Other long term (current) drug therapy; Z68.37 Body mass index [BMI] 37.0-37.9, adult
CPT/HCPCS: 36415; 71045; 74250; 80048; 80053; 82947; 83735; 85025; 85610; 96374; 96375; 97116; 97161; 99284; A9270; J1170; J2405; J7120; Q9963

== ENCOUNTER → 2023-06-04 | Outpatient (CLI) | payer OTHER ==
[2023-06-04 15:39] LABS: BASOPHILS ABSOLUTE AUTO 0.04 K/mm3 (0.00-0.23); BASOPHILS PERCENT AUTO 0 % (0-2); EOSINOPHILS ABSOLUTE AUTO 0.01 K/mm3 (0.00-0.68); EOSINOPHILS PERCENT AUTO 0 % (0-6); Hematocrit 45.6 % (37.0-53.0); Hemoglobin 15.5 g/dL (13.5-17.5); IMMATURE GRAN ABSOLUTE AUTO 0.12 K/mm3 (0.00-0.10); IMMATURE GRAN PERCENT AUTO 1 % (0-1); LYMPHOCYTES ABSOLUTE AUTO 0.57 K/mm3 (0.84-5.20); LYMPHOCYTES PERCENT AUTO 4 % (21-46); MONOCYTES ABSOLUTE AUTO 0.67 K/mm3 (0.16-1.47); MONOCYTES PERCENT AUTO 4 % (4-13); Mean Corpuscular HGB 32.5 pg (26.0-34.0); Mean Corpuscular Volume 96 fL (80-100); Mean Platelet Volume 9.5 fL (9.1-12.4); NEUTROPHILS ABSOLUTE AUTO 13.67 K/mm3 (1.96-9.15); NEUTROPHILS PERCENT AUTO 91 % (41-73); Platelet Count 247 K/mm3 (150-400); RDW Coefficient Variation 14.8 % (11.7-14.2); RDW Standard Deviation 51.2 fL (35.1-46.3); Red Blood Cell Count 4.77 M/mm3 (4.30-5.90); White Blood Cell Count 15.08 K/mm3 (4.00-11.30)
[2023-06-04 15:49] LABS: Albumin, Blood 4.1 g/dL (3.4-5.0); Albumin/Globulin Ratio 1.2 (0.8-1.8); Bilirubin, Total 0.9 mg/dL (0.1-1.0); Bun/Creatinine Ratio 13.3 (12.0-20.0); Calcium, Blood 9.2 mg/dL (8.5-10.1); Creatinine, Blood 0.9 mg/dL (0.60-1.20); Globulin, Blood 3.4 g/dL (2.2-4.0); Potassium, Blood 3.8 mmol/L (3.5-5.5); Total Protein, Blood 7.5 g/dL (6.4-8.2)
== END | disposition home or self-care (01) ==
LOC: LAB 15:33 → LAB SHORT 15:33
PROVIDERS: Chiropractor
DX: R10.9 Unspecified abdominal pain (principal)
CPT/HCPCS: 80053; 83605; 83690; 84484; 85025

== ENCOUNTER → 2023-07-27 | Outpatient (CLI) | payer OTHER ==
[2023-07-27 07:35] LABS: BASOPHILS ABSOLUTE AUTO 0.04 K/mm3 (0.00-0.23); BASOPHILS PERCENT AUTO 1 % (0-2); EOSINOPHILS ABSOLUTE AUTO 0.05 K/mm3 (0.00-0.68); EOSINOPHILS PERCENT AUTO 1 % (0-6); Hematocrit 43.5 % (37.0-53.0); Hemoglobin 14.5 g/dL (13.5-17.5); IMMATURE GRAN ABSOLUTE AUTO 0.03 K/mm3 (0.00-0.10); IMMATURE GRAN PERCENT AUTO 1 % (0-1); LYMPHOCYTES ABSOLUTE AUTO 0.94 K/mm3 (0.84-5.20); LYMPHOCYTES PERCENT AUTO 18 % (21-46); MONOCYTES ABSOLUTE AUTO 0.48 K/mm3 (0.16-1.47); MONOCYTES PERCENT AUTO 9 % (4-13); Mean Corpuscular HGB 32.2 pg (26.0-34.0); Mean Corpuscular HGB Conc 33.3 g/dL (31.5-36.5); Mean Corpuscular Volume 97 fL (80-100); NEUTROPHILS ABSOLUTE AUTO 3.83 K/mm3 (1.96-9.15); NEUTROPHILS PERCENT AUTO 71 % (41-73); Platelet Count 216 K/mm3 (150-400); RDW Standard Deviation 49.8 fL (35.1-46.3); Red Blood Cell Count 4.51 M/mm3 (4.30-5.90); White Blood Cell Count 5.37 K/mm3 (4.00-11.30)
[2023-07-27 08:32] LABS: Albumin, Blood 3.9 g/dL (3.4-5.0); Albumin/Globulin Ratio 1.1 (0.8-1.8); Bilirubin, Total 0.7 mg/dL (0.1-1.0); Bun/Creatinine Ratio 16.5 (12.0-20.0); Calcium, Blood 8.7 mg/dL (8.5-10.1); Creatinine, Blood 0.91 mg/dL (0.60-1.20); Globulin, Blood 3.4 g/dL (2.2-4.0); Total Protein, Blood 7.3 g/dL (6.4-8.2)
== END ==
LOC: LAB SHORT 07:29 → LAB 07:29
PROVIDERS: Physician Assistant
DX: I48.91 Unspecified atrial fibrillation (principal)
CPT/HCPCS: 80053; 84484; 85025

== ENCOUNTER → 2025-03-14 | Outpatient (CLI) | payer OTHER ==
[2025-03-14 19:26] LABS: Creatinine, Urine Random 231.0 mg/dL (27.00-270.00); Microalb/Creat Ratio UR, Rand 7.836 mg/g (0.000-30.000); Microalbumin, Random Urine 18.1 mg/L (0.000-20.000)
== END | disposition home or self-care (01) ==
LOC: LAB 12:00 → LAB SHORT 12:00
PROVIDERS: Internal Medicine
DX: E11.8 Type 2 diabetes mellitus with unspecified complications (principal)
CPT/HCPCS: 82043; 82570